=== PATIENT | male | born 1990 | race Caucasian/White ===

== ENCOUNTER 2018-01-25 11:53 | Emergency (ER) | payer MEDICARE, MEDICAID ==
[~2018-01-25] VITALS: Ht 180.3 cm; Wt 104.0 kg
[~2018-01-25 11:53] MED LIST: ALBU18HF2 IH
[2018-01-25 12:47] VITALS: BP 145/87
[2018-01-25] MEDS ORDERED: CefTRIAXone 250MG inj IM ONE (15:00)
[2018-01-25] MEDS ORDERED: azithromycin 250mg tablet PO ONE (15:00)
[2018-01-25] MEDS ORDERED: CefTRIAXone 250MG IM Kit w/LIDOcaine IM ONE (15:10)
== END 2018-01-25 15:26 | disposition home or self-care (01) ==
LOC: ER 11:53
DX: A64 Unspecified sexually transmitted disease (principal); J45.909 Unspecified asthma, uncomplicated; F12.10 Cannabis abuse, uncomplicated; F15.10 Other stimulant abuse, uncomplicated
CPT/HCPCS: 96372; 99283; J0696